=== PATIENT | male | born 1985 | race Caucasian/White ===

== ENCOUNTER 2016-08-26 15:52 | Emergency (ER) | payer SELFPAY ==
--- NOTE | 2016-08-26 16:32 | ED CLINICAL REPORT ---
Clinical Report - Physicians/Mid Levels [facility] [address] [place] [address] 08/26/2016 15:53 [id number] Time Seen: 16:01; initial patient contact, initial documentation, patient care assumed. Arrived- By private vehicle. Historian- patient. HISTORY OF PRESENT ILLNESS Chief Complaint: Injury to the right wrist. The injury happened just prior to arrival. Occurred at home. The patient sustained a laceration from a sharp edge (working on car, cut wrist on piece of metal). Patient is experiencing mild pain. Patient denies injury to the head or neck. No other injury. REVIEW OF SYSTEMS The patient sustained a laceration. No swelling, tingling, numbness, weakness or foreign body. All systems otherwise negative, except as recorded above. PAST HISTORY Negative. The patient's dominant hand is the right. Tetanus immunization status is up-to-date. SOCIAL HISTORY Never smoker. Occasional alcohol use. History of drug use: marijuana. No recent travel. Is a local resident. FAMILY HISTORY No significant family medical history. ADDITIONAL NOTES The nursing notes have been reviewed with agreement regarding the chief complaint, HPI, ROS, PMH and patient medications and allergies. PHYSICAL EXAM Vital Signs: 08/26/2016 15:57 BP: 131/75. HR: 54. RR: 18. O2 saturation: 99%. Temp: 97.6 F. Pain level now: 3/10. Have been reviewed as abnormal and appear to be correct. Blood pressure normal. Bradycardic. Respiratory rate normal. Temperature normal. Oxygen saturation normal. Appearance: Alert. Oriented X3. No acute distress. Head: Head atraumatic. Eyes: Pupils equal, round and reactive to light. Eyes normal inspection. Respiratory: No respiratory distress. Skin: Skin warm and dry. Skin intact. Extremities: Wrist injury present. Right wrist: mild tenderness and superficial 1.0 cm laceration located in the volar aspect of the wrist. SEE LACERATION PROCEDURE NOTE #1. Neurovascular intact distally. No erythema, swelling, abrasion, puncture wound or foreign body. No ecchymosis or deformity. No joint effusion or limitation in ROM. No hand injury. Hand and wrist exam otherwise negative. Extremities otherwise negative. Neuro, Vascular and Tendons: Vascular status intact. Sensation intact. Motor intact. Tendon function intact. Neuro: Oriented X 3. No motor deficit. No sensory deficit. Note: isolated injury to wrist. PROGRESS AND PROCEDURES Laceration Repair: Wound depth/shape- subcutaneous and linear. Wound is clean. No contamination, foreign body or contused tissue present. No tissue loss. Distal neuro/vascular/tendon status normal. Tendon not examined. No tendon deficit or laceration or tendon injury. Prepped with Betadine. Wound explored, cleansed, irrigated and examined to the base in bloodless field with normal saline. Wound not debrided. No foreign material removed. Closure of superficial layer: (dermabond). Skin adhesive used. Post-procedure: he is stable and there are no complications. Bleeding is controlled and neuro-vascular status is intact distal to the wound. Tetanus immunization up-to-date. Estimated blood loss: 1 mL. Patient counseled in person regarding the patient's stable condition and diagnosis. Differential Diagnosis: Other possible considerations: wrist lac, si, fb, skin avulsion, tendon injury. Above considerations are based on history and physical exam. Differential diagnosis was discussed with patient. Disposition: Discharged home in good and improved condition (16:32). Condition: good and stable. CLINICAL IMPRESSION Single superficial laceration to the right wrist.Treatment of laceration not delayed. No infection or foreign body present. INSTRUCTIONS Warnings: GENERAL WARNINGS: Return or contact your physician immediately if your condition worsens or changes unexpectedly, if not improving as expected, or if other problems arise. Specifically return if problem worsens. Follow-up: Follow up with your doctor in about three days as needed and for wound check. Call for an appointment. Summary of care provided to patient. Understanding of the discharge instructions verbalized by patient. (Electronically signed by Geovanna Mares A.R.N.P. 08/26/2016 17:11)
--- NOTE | 2016-08-26 16:32 | ED NURSING NOTES ---
Clinical Report - Nurses [facility] [address] [place] [address] 08/26/2016 15:53 Patient: KODY MOHR TRIAGE Triage time 1557. Acuity: LEVEL 4. Chief Complaint: INJURY TO THE RIGHT WRIST. 15:57. --16:05 Marianna Carrillo R.N. 15:57 08/26/16. BP: 131/75. HR: 54. RR: 18. O2 saturation: 99%. Temp: 97.6 F. Pain level now: 04/14. --16:05 Marianna Carrillo R.N. Weight: 72.5 kg stated. Height/Length: 71 inches Per Patient. BMI: 22.3. --16:02 Marianna Carrillo R.N. Medications None. --16:05 Marianna Carrillo R.N. Allergies No Known Drug Allergy. --16:05 Marianna Carrillo R.N. History Arrived by private vehicle. Historian: patient. Accompanied by father. No primary care physician. This occurred just prior to arrival. He sustained a laceration from a sharp edge and blunt force. ( Pt working on car, had wire break loose and hit him.has 1cm lac to medial rt wrist -- also has abrasion to MP joint of thumb and c/o numbness to thumb). ( good distal color, temp and cap refill to all fingers, c/o numbness to thumb, but not other fingers). PAST MEDICAL HX: Negative. Tetanus status: up-to-date. SURGERY HX: No history of previous surgery. SOCIAL HX: Never smoker. Occasional alcohol use. History of drug use: marijuana. --16:05 Marianna Carrillo R.N. PROBLEMS: no known problems. ADDITIONAL SURGERIES: no known surgeries. Interventions ID band on patient. To treatment room. --16:05 Marianna Carrillo R.N. PHYSICAL ASSESSMENT 15:57. Ambulatory to room. GENERAL / NEURO / PSYCH: Oriented X 4. Alert. Appears in no acute distress. Appears anxious. He has had numbness (to thumb). EXTREMITIES: Capillary refill is less than 2 seconds in the extremities. Extremity pulses are within normal limits. Extremities exhibit normal ROM. Right wrist: tenderness and subcutaneous 1.0 cm laceration with controlled bleeding. SKIN: Skin is warm and dry. --16:07 Marianna Carrillo R.N. NURSING PROGRESS NOTES 15:57. Reassurance given. Patient identifiers checked. Call light placed in reach. Side rails up. Bed placed in lowest position. Patient ready for evaluation- chart flagged. --16:06 Marianna Carrillo R.N. 16:15. WOUND REPAIR: Wound repair performed by INSTRUCTIONAL SUPERVISOR. The wound is located on the (rt wrist). The wound is linear. Preparation. Wound cleansed per INSTRUCTIONAL SUPERVISOR and irrigated per INSTRUCTIONAL SUPERVISOR with sterile saline using a syringe. Procedure: wound repaired with skin adhesive. Post-procedure: he was stable, bleeding controlled and neuro-vascular status intact distal to wound. Total time of assist / procedure: 15 minutes. --18:35 Marianna Carrillo R.N. DISPOSITION / DISCHARGE 16:30. Condition at departure: stable. No learning barriers present. Discharge instructions provided and reviewed with the patient. Reviewed wound care instructions. Patient and application security architect verbalized understanding. ( pt and application security architect were given verbal instructions by EDNP, left before written instructions were given by EDRN). The patient was discharged home and accompanied by application security architect. He left the Emergency Department ambulatory and via private vehicle. --18:34 Marianna Carrillo R.N. 16:30 08/26/16. BP: unable to obtain. HR: unable to obtain. RR: unable to obtain. O2 saturation: unable to obtain. Temp: unable to obtain. Pain level now unable to obtain. --18:34 Marianna Carrillo R.N. Locked/Released at 08/26/2016 18:36 by Marianna Carrillo R.N.
--- NOTE | 2016-08-26 16:32 | ED NURSING NOTES ---
Clinical Report - Nurses [facility] [address] [place] [address] 08/26/2016 15:53 Patient: KODY MOHR TRIAGE Triage time 1557. Acuity: LEVEL 4. Chief Complaint: INJURY TO THE RIGHT WRIST. 15:57. --16:05 Marianna Carrillo R.N. 15:57 08/26/16. BP: 131/75. HR: 54. RR: 18. O2 saturation: 99%. Temp: 97.6 F. Pain level now: 04/14. --16:05 Marianna Carrillo R.N. Weight: 72.5 kg stated. Height/Length: 71 inches Per Patient. BMI: 22.3. --16:02 Marianna Carrillo R.N. Medications None. --16:05 Marianna Carrillo R.N. Allergies No Known Drug Allergy. --16:05 Marianna Carrillo R.N. History Arrived by private vehicle. Historian: patient. Accompanied by father. No primary care physician. This occurred just prior to arrival. He sustained a laceration from a sharp edge and blunt force. ( Pt working on car, had wire break loose and hit him.has 1cm lac to medial rt wrist -- also has abrasion to MP joint of thumb and c/o numbness to thumb). ( good distal color, temp and cap refill to all fingers, c/o numbness to thumb, but not other fingers). PAST MEDICAL HX: Negative. Tetanus status: up-to-date. SURGERY HX: No history of previous surgery. SOCIAL HX: Never smoker. Occasional alcohol use. History of drug use: marijuana. --16:05 Marianna Carrillo R.N. PROBLEMS: no known problems. ADDITIONAL SURGERIES: no known surgeries. Interventions ID band on patient. To treatment room. --16:05 Marianna Carrillo R.N. PHYSICAL ASSESSMENT 15:57. Ambulatory to room. GENERAL / NEURO / PSYCH: Oriented X 4. Alert. Appears in no acute distress. Appears anxious. He has had numbness (to thumb). EXTREMITIES: Capillary refill is less than 2 seconds in the extremities. Extremity pulses are within normal limits. Extremities exhibit normal ROM. Right wrist: tenderness and subcutaneous 1.0 cm laceration with controlled bleeding. SKIN: Skin is warm and dry. --16:07 Marianna Carrillo R.N. NURSING PROGRESS NOTES 15:57. Reassurance given. Patient identifiers checked. Call light placed in reach. Side rails up. Bed placed in lowest position. Patient ready for evaluation- chart flagged. --16:06 Marianna Carrillo R.N. 16:15. WOUND REPAIR: Wound repair performed by CASKET INSPECTOR. The wound is located on the (rt wrist). The wound is linear. Preparation. Wound cleansed per CASKET INSPECTOR and irrigated per CASKET INSPECTOR with sterile saline using a syringe. Procedure: wound repaired with skin adhesive. Post-procedure: he was stable, bleeding controlled and neuro-vascular status intact distal to wound. Total time of assist / procedure: 15 minutes. --18:35 Marianna Carrillo R.N. DISPOSITION / DISCHARGE 16:30. Condition at departure: stable. No learning barriers present. Discharge instructions provided and reviewed with the patient. Reviewed wound care instructions. Patient and philosophy professor verbalized understanding. ( pt and philosophy professor were given verbal instructions by EDNP, left before written instructions were given by EDRN). The patient was discharged home and accompanied by philosophy professor. He left the Emergency Department ambulatory and via private vehicle. --18:34 Marianna Carrillo R.N. 16:30 08/26/16. BP: unable to obtain. HR: unable to obtain. RR: unable to obtain. O2 saturation: unable to obtain. Temp: unable to obtain. Pain level now unable to obtain. --18:34 Marianna Carrillo R.N. Locked/Released at 08/26/2016 18:36 by Marianna Carrillo R.N.
--- NOTE | 2016-08-26 18:36 | ED MAR SUMMARY ---
..... Medication Administration Record [facility] [address] [place], [place] [id number] Patient: FANI KODY Marcos Visit ID: [id number] 30y, M Weight: 72.5 kg Height/Length: 71 in BMI: 22.3 ALLERGIES: No Known Drug Allergy
--- NOTE | 2016-08-26 18:36 | ED DISCHARGE INSTRUCTIONS ---
Patient: KODY MOHR General Instructions [facility] VisitID: [id number] [place] [address] 30y, M Registration Date/Time: 08/26/2016 Single superficial laceration to the right wrist.Treatment of laceration not delayed. No infection or foreign body present. INSTRUCTIONS Warnings: GENERAL WARNINGS: Return or contact your physician immediately if your condition worsens or changes unexpectedly, if not improving as expected, or if other problems arise. Specifically return if problem worsens. Follow-up: Follow up with your doctor in about three days as needed and for wound check. Call for an appointment. Summary of care provided to patient. Understanding of the discharge instructions verbalized by patient. ADDITIONAL INFORMATION Laceration (All Closures) Alaceration is a cut through the skin. This will usually require stitches (sutures) or alexis if it is deep. Minor cuts may be treated with a surgical tape closure orskin glue. Home care The following guidelines will help you care for your laceration at home: Extremity, face, or trunk wounds Keep the wound clean and dry. If a bandage was applied and it becomes wet or dirty, replace it. Otherwise, leave it in place for the first 24 hours. If stitches or alexis were used, clean the wound daily. After removing the bandage, wash the area with soap and water. Use a wet cotton swab to loosen and remove any blood or crust that forms. The doctor may prescribe an antibiotic cream or ointment to prevent infection. Do not stop taking this medication until you have finished the prescribed course or the doctor tells you to stop. The doctor may also prescribe medications for pain. Follow the doctors instructions for taking these medications. You may remove the bandage to shower as usual after the first 24 hours, but do not soak the area in water (no swimming) until the stitches or alexis are removed. If surgical tape was used, keep the area clean and dry. If it becomes wet, blot it dry with a towel. If skin glue was used, do not scratch, rub, or pick at the adhesive film. Do not place tape directly over the film. Do not apply liquid, ointment, or creams to the wound while the film is in place. Do not clean the wound with peroxide and do not apply ointments. Avoid activities that cause heavy sweating until the film has fallen off. Protect the wound from prolonged exposure to sunlight or tanning lamps. You may shower as usual but do not soak the wound in water (no baths or swimming). The film will fall off by itself in 510 days. Scalp wounds During the first two days, you may carefully rinse your hair in the shower to remove blood, glass or dirt particles. After two days, you may shower and shampoo your hair normally. Do not soak your scalp in the tub or go swimming until the stitches or alexis have been removed. Talk with your doctor before applying any antibiotic ointment to the wound. Mouth wounds Eat soft foods to reduce pain. If the cut is inside of your mouth, clean by rinsing after each meal and at bedtime with a mixture of equal parts water and hydrogen peroxide (do not swallow!). Or, you can use a cotton swab to directly apply hydrogen peroxide onto the cut. Mouth wounds can be painful when eating. You may use an [id number] local numbing solution for pain relief. If this is not available, you may use any numbing solution for teething babies. You may apply this directly to the sores with a cotton-tip swab or with your finger. Follow-up care Follow up with your health care provider. Most skin wounds heal within ten days. Mouth and facial wounds heal within five days. However, even with proper treatment, a wound infection may sometimes occur. Therefore, you should check the wound daily for signs of infection listed below. Stitches should be removed from the face within five days; stitches and alexis should be removed from other parts of the body within 714 days. If dissolving stitches were used in the mouth, these will fall out or dissolve without the need for removal. If tape closures were used, remove them yourself if they have not fallen off after 7 days. Ifskin glue was used, the film will fall off by itself in 510 days. When to seek medical care Get prompt medical attention if any of these occur: Bleeding not controlled by direct pressure Signs of infection, including increasing pain in the wound, increasing wound redness or swelling, or pus coming from the wound Fever of 100.4F (38C) or higher, or as directed by your health care provider Stitches or alexis come apart or fall out or surgical tape falls off before 7 days Wound edges re-open You have been given the following additional information: Laceration, All (Electronically signed by Geovanna Mares A.R.N.P. 08/26/2016 17:11)
--- NOTE | 2016-08-26 18:36 | ED MED RECONCILIATION SUMMARY ---
Patient: MAGALIEJIM KODY Nat Marcos Medication Reconciliation Report [facility] VisitID: [id number] [address] [place] [address] 30y, M Registration Date/Time: 08/26/2016 Weight: 72.5 kg Height/Length: 71 in. BMI: 22.3 ALLERGIES: No Known Drug Allergy The patient's Home Medications are listed below: NONE. The source(s) of the original Home Medication information: Not obtained. The following Medications were given to the patient in the Emergency Department: None. The following Medications were prescribed to the patient: None.
--- NOTE | 2016-08-26 18:36 | ED MAR SUMMARY ---
..... Medication Administration Record [facility] [address] [place], [place] [id number] Patient: FANI KODY Marcos Visit ID: [id number] 30y, M Weight: 72.5 kg Height/Length: 71 in BMI: 22.3 ALLERGIES: No Known Drug Allergy
--- NOTE | 2016-08-26 18:36 | ED MED RECONCILIATION SUMMARY ---
Patient: MAGALIEJIM KODY Nat Marcos Medication Reconciliation Report [facility] VisitID: [id number] [address] [place] [address] 30y, M Registration Date/Time: 08/26/2016 Weight: 72.5 kg Height/Length: 71 in. BMI: 22.3 ALLERGIES: No Known Drug Allergy The patient's Home Medications are listed below: NONE. The source(s) of the original Home Medication information: Not obtained. The following Medications were given to the patient in the Emergency Department: None. The following Medications were prescribed to the patient: None.
== END 2016-08-26 16:30 | disposition home or self-care (01) ==
LOC: ED SRH 15:52
DX: S61.511A Laceration without foreign body of right wrist, initial encounter (principal); W26.8XXA Contact with other sharp object(s), not elsewhere classified, initial encounter; Y93.89 Activity, other specified; Y92.009 Unspecified place in unspecified non-institutional (private) residence as the place of occurrence of the external cause; Y99.9 Unspecified external cause status
CPT/HCPCS: 82708